=== PATIENT | male | born 2000 | race Two or more races ===

== ENCOUNTER 2023-02-27 16:37 | Inpatient (IN) | payer BC ==
[~2023-02-27] VITALS: Ht 172.7 cm; Wt 83.9 kg
[2023-02-27 18:42] LABS: ANION GAP 11 mmol/L (8-16); CALCIUM, TOTAL 9.3 mg/dL (8.8-10.5); CARBON DIOXIDE 28 mmol/L (22-29); CHLORIDE 102 mmol/L (98-107); CREATININE 0.83 mg/dL (0.60-1.30); GLOMERULAR FILTR. RATE CALC > 60 mL/min (>60); GLUCOSE,RANDOM 96 mg/dL (70-110); POTASSIUM 3.4 mmol/L (3.5-5.1); SODIUM SERUM 141 mmol/L (136-145); UREA NITROGEN, BLOOD 12 mg/dL (7-18)
[2023-02-27 18:44] LABS: BASOPHILS % (AUTO) 0.4 % (0.0-2.0); EOSINOPHILS % (AUTO) 1.3 % (1.0-6.0); HEMATOCRIT 45.5 % (41-53); HEMOGLOBIN 15.5 g/dL (13.5-17.5); LYMPHOCYTES # (AUTO) 2.4 K/uL (1.0-4.8); LYMPHOCYTES % (AUTO) 17.2 % (22.0-44.0); MEAN CORPUSCULAR VOLUME 85 fL (80-100); MONOCYTES # (AUTO) 0.8 K/uL (0.1-1.0); MONOCYTES % (AUTO) 5.6 % (2.0-9.0); NEUTROPHILS # (AUTO) 10.3 K/uL (1.8-7.7); NEUTROPHILS % (AUTO) 75.5 % (40.0-70.0); PLATELET COUNT (AUTO) 349 K/uL (150-450); RED BLOOD CELL COUNT(AUTO) 5.35 MIL/uL (4.50-5.90); RED CELL DISTRIBUTION WIDTH 13.2 % (11.5-14.5); WHITE BLOOD COUNT (AUTO) 13.7 K/uL (4.5-11.0)
[2023-02-27 18:45] LABS: ALCOHOL, BLOOD (SERUM) < 3 mg/dL (0-10)
[2023-02-27 18:47] LABS: ALANINE AMINOTRANSFERASE 31 U/L (12-78); ALBUMIN 4.1 g/dL (3.4-5.0); ALKALINE PHOSPHATASE 69 U/L (46-116); ASPARTATE AMINOTRANSFERASE 17 U/L (15-37); BILIRUBIN,TOTAL 0.2 mg/dL (0.1-1.0); TOTAL PROTEIN, SERUM 7.5 g/dL (6.4-8.2)
[2023-02-27 19:09] LABS: PH,URINE DRUG SCREEN 5.5 (5.0-8.0)
[2023-02-27 19:16] LABS: COVID AG,FIA SOURCE NASAL SWAB
[2023-02-27 19:19] LABS: ALCOHOL, URINE DRUG SCREEN NEGATIVE (NEGATIVE); AMPHET/METH SCREEN,URINE NEGATIVE (NEGATIVE); BARBITURATE SCREEN, URINE NEGATIVE (NEGATIVE); BENZODIAZEPINES SCREEN,URINE NEGATIVE (NEGATIVE); CANNABINOID SCREEN,URINE NEGATIVE (NEGATIVE); COCAINE SCREEN,URINE NEGATIVE (NEGATIVE); METHADONE SCREEN, URINE NEGATIVE (NEGATIVE); OPIATE SCREEN,URINE NEGATIVE (NEGATIVE); PHENCYCLIDINE SCREEN,URINE NEGATIVE (NEGATIVE)
[2023-02-27] MEDS ORDERED: MAG HYDROX/AL HYDROX/SIMETH ES 30 ML SUSPENSION UDCUP PO PRN (19:30)
[2023-02-27] MEDS ORDERED: MAGNESIUM HYDROXIDE SUSPENSION 30 ML UDCUP PO PRN (19:30)
[2023-02-27] MEDS ORDERED: LOPERAMIDE HCL 2 MG CAPSULE PO PRN (19:30)
[2023-02-27] MEDS ORDERED: HydrOXYzine PAMOATE 50 MG CAPSULE PO PRN (19:30)
[2023-02-27] MEDS ORDERED: ZOLPIDEM TARTRATE 10 MG TABLET PO PRN (19:30)
[2023-02-27] MEDS ORDERED: TUBERCULIN, PURIFIED PROTEIN DERIVATIVE 5 TU/0.1 ML SYRINGE ID ONE (19:30)
[2023-02-27] MEDS ORDERED: PROMETHAZINE HCL 25 MG TABLET PO PRN (19:30)
[2023-02-27] MEDS ORDERED: ACETAMINOPHEN 325 MG TABLET PO PRN (19:30)
[2023-02-27] MEDS ORDERED: LURASIDONE HCL 20 MG TABLET PO PRN (19:30)
[2023-02-27] MEDS ORDERED: LORazepam 2 MG TABLET PO PRN (19:30)
[2023-02-27] MEDS ORDERED: GuaiFENesin/D-METHORPHAN [SUGAR-FREE] 200-20MG/10 ML SYRUP UDCUP PO PRN (19:30)
[2023-02-27 19:33] LABS: SARS-COV2 (COVID) ANTIGEN,FIA Negative (Negative)
[2023-02-27] MEDS: TRIHEXYPHENIDYL HCL 5 MG TABLET PO SCH (21:49)
[2023-02-27] MEDS: THIAMINE 100 MG TABLET PO SCH (21:49)
[2023-02-27] MEDS: MELATONIN 5 MG TABLET PO SCH (21:49)
[2023-02-28 00:01] VITALS: BP 135/90; PULSE 82; RESP 18; TEMP 98.2; O2SAT 100
[2023-02-28 04:30] VITALS: BP 134/64; PULSE 80; RESP 16; TEMP 97.8; O2SAT 98
[2023-02-28 08:18] VITALS: BP 125/67; PULSE 92; RESP 18; TEMP 98.2; O2SAT 96
[2023-02-28] MEDS: MULTIVITAMINS WITH MINERALS, THERAPEUTIC TABLET PO SCH (08:33)
[2023-02-28] MEDS: THIAMINE 100 MG TABLET PO SCH ×2 (08:33→17:12)
[2023-02-28] MEDS: TRIHEXYPHENIDYL HCL 5 MG TABLET PO SCH ×3 (08:33→17:13)
[2023-02-28] MEDS ORDERED: FLUoxetine HCL 20 MG CAPSULE PO SCH (09:00)
[2023-02-28] MEDS ORDERED: NALTREXONE HCL 50 MG TABLET PO SCH (09:00)
[2023-02-28] MEDS: PALIPERIDONE PALMITATE 234 MG/1.5 ML SYRINGE IM ONE ×2 (09:00→09:25)
[2023-02-28] MEDS: FOLIC ACID 1 MG TABLET PO SCH (09:07)
[2023-02-28 10:23] LABS: HEMOGLOBIN A1C 5.1 % (3.8-5.6)
[2023-02-28 10:41] LABS: FREE T4 (FREE THYROXINE) 0.98 ng/dL (0.76-1.46); THYROID STIMULATING HORMONE 1.87 uIU/mL (0.36-3.74)
[2023-02-28] MEDS ORDERED: LUMATEPERONE PO SCH (12:27)
[2023-02-28] MEDS ORDERED: *PATIENT'S OWN MED [ENTER DRUG, DOSE, FREQUENCY IN COMMENTS] CLINICAL SCH (12:30)
[2023-02-28] MEDS ORDERED: LURASIDONE HCL 40 MG TABLET PO SCH (17:00)
[2023-02-28] MEDS: LURASIDONE HCL 80 MG TABLET PO SCH (17:12)
[2023-02-28 20:03] VITALS: BP 118/68; PULSE 88; RESP 17; TEMP 97.8; O2SAT 97
[2023-02-28] MEDS: MELATONIN 5 MG TABLET PO SCH (20:07)
[2023-03-01 08:10] VITALS: BP 123/70; PULSE 75; RESP 17; TEMP 98.2; O2SAT 98
[2023-03-01] MEDS: MULTIVITAMINS WITH MINERALS, THERAPEUTIC TABLET PO SCH (08:38)
[2023-03-01] MEDS: FOLIC ACID 1 MG TABLET PO SCH (08:44)
[2023-03-01] MEDS: THIAMINE 100 MG TABLET PO SCH ×2 (08:44→16:42)
[2023-03-01] MEDS: NICOTINE POLACRILEX 2 MG LOZENGE PO PRN ×2 (08:49→13:06)
[2023-03-01] MEDS: LURASIDONE HCL 80 MG TABLET PO SCH (16:42)
[2023-03-01 20:07] VITALS: BP 136/78; PULSE 88; RESP 17; TEMP 97.6; O2SAT 99
[2023-03-01] MEDS: MELATONIN 5 MG TABLET PO SCH (20:15)
[2023-03-01 23:51] VITALS: BP 136/78; PULSE 88; RESP 17; TEMP 97.6; O2SAT 99
[2023-03-02] MEDS: NICOTINE POLACRILEX 2 MG LOZENGE PO PRN ×3 (05:10→15:42)
[2023-03-02 07:37] LABS: ANION GAP 4 mmol/L (8-16); CALCIUM, TOTAL 9.4 mg/dL (8.8-10.5); CARBON DIOXIDE 32 mmol/L (22-29); CHLORIDE 103 mmol/L (98-107); CHOLESTEROL 197 mg/dL (131-200); CREATININE 0.77 mg/dL (0.60-1.30); GLOMERULAR FILTR. RATE CALC > 60 mL/min (>60); GLUCOSE,RANDOM 91 mg/dL (70-110); HDL CHOLESTEROL 49 mg/dL (40-60); LDL CHOL (CALC.) 113 mg/dL (0-130); POTASSIUM 4.1 mmol/L (3.5-5.1); SODIUM SERUM 139 mmol/L (136-145); TRIGLYCERIDES 174 mg/dL (15-150); UREA NITROGEN, BLOOD 12 mg/dL (7-18)
[2023-03-02 08:20] VITALS: BP 126/69; PULSE 100; RESP 16; TEMP 98.2; O2SAT 99
[2023-03-02] MEDS: MULTIVITAMINS WITH MINERALS, THERAPEUTIC TABLET PO SCH (08:45)
[2023-03-02] MEDS: FOLIC ACID 1 MG TABLET PO SCH (08:45)
[2023-03-02] MEDS: THIAMINE 100 MG TABLET PO SCH ×2 (08:45→16:06)
[2023-03-02] MEDS ORDERED: LURA80TA4 PO (15:30)
[2023-03-02] MEDS ORDERED: MELA5TAB40 PO (15:30)
[2023-03-02 16:04] VITALS: BP 127/82; PULSE 79; RESP 18; TEMP 98.3; O2SAT 97
[2023-03-02] MEDS: LURASIDONE HCL 80 MG TABLET PO SCH (16:06)
[2023-03-04] MEDS ORDERED: PALIPERIDONE PALMITATE 156 MG/ML SYRINGE IM ONE (09:00)
== END 2023-03-02 18:37 | disposition home or self-care (01) | DRG 885 ==
LOC: EMS 16:39 → B3A 21:48 → B2X 22:24
PROVIDERS: ADMIT Psychiatry & Neurology Psychiatry; ATTEND Psychiatry & Neurology Psychiatry
DX: F25.9 Schizoaffective disorder, unspecified (principal); D72.829 Elevated white blood cell count, unspecified; F31.9 Bipolar disorder, unspecified; E87.6 Hypokalemia; J45.909 Unspecified asthma, uncomplicated; Z20.822 Contact with and (suspected) exposure to COVID-19; F17.210 Nicotine dependence, cigarettes, uncomplicated; F12.21 Cannabis dependence, in remission; Z55.9 Problems related to education and literacy, unspecified; Z59.9 Problem related to housing and economic circumstances, unspecified; Z63.9 Problem related to primary support group, unspecified; Z65.3 Problems related to other legal circumstances; Z91.010 Allergy to peanuts
CPT/HCPCS: 80048; 80053; 80061; 80307; 83036; 84439; 84443; 85025; 86592; 99285; G0480; Q9967